=== PATIENT | male | born 1945 | race Two or more races ===

== ENCOUNTER → 2023-03-23 | Outpatient (CLI) | payer OTHER ==
[2023-03-23 09:39] LABS: Basophils # (auto) 0 10 ^3/uL (0-0.2); Eosinophils # (auto) 0.2 10 ^3/uL (0-0.8); Eosinophils % (auto) 4.7 % (0.0-7.0); Hematocrit 40.4 % (41.0-53.0); Hemoglobin 13.9 g/dL (13.5-17.5); Lymphocytes # (auto) 1.4 10 ^3/uL (0.4-5.4); Lymphocytes % (auto) 37.3 % (10.0-50.0); Mean Corpuscular Hemoglobin 30.3 pg (28.0-32.0); Mean Corpuscular Hgb Conc. 34.3 g/dL (32.0-36.0); Mean Corpuscular Volume 88.4 fL (80.0-100.0); Monocytes # (auto) 0.3 10 ^3/uL (0-1.3); Neutrophils # (auto) 1.8 10 ^3/uL (1.6-8.6); Nucleated Red Blood Cells % 0.5 %; Red Blood Cells 4.57 10^6/uL (4.5-5.90); Red Cell Distribution Width 13.4 % (11.8-14.3); White Blood Cell 3.7 10^3/uL (4.4-10.8)
[2023-03-23 10:26] LABS: Potassium 4.4 mmol/L (3.5-5.1)
[2023-03-23 10:38] LABS: Albumin 4.2 g/dL (3.4-5.0); BUN/Creatinine Ratio 12.7 (10.0-20.0); Bilirubin, Total 0.6 mg/dL (0.2-1.0); Calcium 9.1 mg/dL (8.5-10.1); Total Protein 7.7 g/dL (6.4-8.2)
== END | disposition home or self-care (01) ==
LOC: LAB 09:22
PROVIDERS: ATTEND Family Medicine
DX: Z12.5 Encounter for screening for malignant neoplasm of prostate (principal); Z12.11 Encounter for screening for malignant neoplasm of colon; N40.1 Benign prostatic hyperplasia with lower urinary tract symptoms; E78.2 Mixed hyperlipidemia; E55.9 Vitamin D deficiency, unspecified
CPT/HCPCS: 36415; 80053; 80061; 83036; 84153; 84443; 85025

== ENCOUNTER → 2023-07-05 | Outpatient (CLI) | payer OTHER ==
[2023-07-05 10:10] LABS: Albumin 4.5 g/dL (3.2-4.8)
[2023-07-05 10:11] LABS: Bilirubin, Direct 0.3 mg/dL (<0.3); Bilirubin, Total 0.9 mg/dL (0.2-1.0); Total Protein 7.1 g/dL (5.7-8.2)
== END | disposition home or self-care (01) ==
LOC: LAB 09:22
PROVIDERS: ATTEND Family Medicine
DX: N18.30 Chronic kidney disease, stage 3 unspecified (principal); E87.8 Other disorders of electrolyte and fluid balance, not elsewhere classified; E78.2 Mixed hyperlipidemia
CPT/HCPCS: 36415; 80061; 80076; 85014

== ENCOUNTER → 2023-08-02 | Outpatient (CLI) | payer OTHER ==
[2023-08-02 12:27] LABS: Basophils # (auto) 0 10 ^3/uL (0-0.2); Basophils % (auto) 1.1 % (0.0-2.0); Eosinophils # (auto) 0.1 10 ^3/uL (0-0.8); Eosinophils % (auto) 3.9 % (0.0-7.0); Hematocrit 39.2 % (41.0-53.0); Hemoglobin 13.3 g/dL (13.5-17.5); Lymphocytes # (auto) 1.6 10 ^3/uL (0.4-5.4); Lymphocytes % (auto) 42.3 % (10.0-50.0); Mean Corpuscular Hemoglobin 29.8 pg (28.0-32.0); Mean Corpuscular Hgb Conc. 33.8 g/dL (32.0-36.0); Mean Corpuscular Volume 88.3 fL (80.0-100.0); Monocytes # (auto) 0.3 10 ^3/uL (0-1.3); Neutrophils # (auto) 1.7 10 ^3/uL (1.6-8.6); Neutrophils % (auto) 43.7 % (37.0-80.0); Nucleated Red Blood Cells % 0.2 %; Red Blood Cells 4.44 10^6/uL (4.5-5.90); Red Cell Distribution Width 13.9 % (11.8-14.3); White Blood Cell 3.8 10^3/uL (4.4-10.8)
[2023-08-02 13:25] LABS: Alanine Aminotransferase 31 U/L (7-40); Albumin 4.6 g/dL (3.2-4.8); Alkaline Phosphatase 39 U/L (46-116); Anion Gap 7 (5-15); Aspartate Aminotransferase 31 U/L (13-40); Calcium 9.8 mg/dL (8.5-10.1); Carbon Dioxide 26 mmol/L (20-30); Chloride 108 mmol/L (98-107); Cholesterol 152 mg/dL (< 200); Glucose 87 mg/dL (74-106); Potassium 4.1 mmol/L (3.5-5.1); Sodium 141 mmol/L (136-145)
[2023-08-02 13:26] LABS: % Iron Saturation 41.6 % (20-55); BUN/Creatinine Ratio 9.6 (10.0-20.0); Blood Urea Nitrogen 12 mg/dL (9-23); Folate (Folic Acid) 10.42 ng/mL (>5.38); Triglycerides 223 mg/dL (< 150)
[2023-08-02 13:27] LABS: LDL Cholesterol 82 mg/dL (< 100)
[2023-08-02 13:28] LABS: Bilirubin, Total 0.8 mg/dL (0.2-1.0); HDL Cholesterol 29 mg/dL (40-59)
[2023-08-02 13:29] LABS: Total Protein 7.6 g/dL (5.7-8.2)
== END | disposition home or self-care (01) ==
LOC: LAB 12:11
PROVIDERS: ATTEND Family Medicine
DX: D64.9 Anemia, unspecified (principal); E78.2 Mixed hyperlipidemia; E78.5 Hyperlipidemia, unspecified
CPT/HCPCS: 36415; 80053; 80061; 82270; 82607; 82746; 83540; 83550; 85025

== ENCOUNTER → 2023-09-26 | Outpatient (CLI) | payer OTHER ==
[2023-09-26 13:32] LABS: Alanine Aminotransferase 36 U/L (7-40); Alkaline Phosphatase 45 U/L (46-116); Anion Gap 9 (5-15); BUN/Creatinine Ratio 9.5 (10.0-20.0); Blood Urea Nitrogen 12 mg/dL (9-23); Calcium 10.4 mg/dL (8.5-10.1); Carbon Dioxide 26 mmol/L (20-30); Chloride 107 mmol/L (98-107); Glucose 94 mg/dL (74-106); LDL Cholesterol 85 mg/dL (< 100); Potassium 4.2 mmol/L (3.5-5.1); Sodium 142 mmol/L (136-145); Triglycerides 176 mg/dL (< 150)
[2023-09-26 13:33] LABS: Albumin 4.8 g/dL (3.2-4.8); Aspartate Aminotransferase 36 U/L (13-40); Cholesterol 138 mg/dL (< 200); HDL Cholesterol 31 mg/dL (40-59)
[2023-09-26 13:34] LABS: Total Protein 7.9 g/dL (5.7-8.2)
== END | disposition home or self-care (01) ==
LOC: LAB 12:15
PROVIDERS: ATTEND Family Medicine
DX: Z12.11 Encounter for screening for malignant neoplasm of colon (principal); E55.9 Vitamin D deficiency, unspecified; E78.2 Mixed hyperlipidemia; N18.30 Chronic kidney disease, stage 3 unspecified; E78.5 Hyperlipidemia, unspecified
CPT/HCPCS: 36415; 80053; 80061; 83036; 84153; 84443

== ENCOUNTER → 2023-12-27 | Outpatient (CLI) | payer OTHER ==
[2023-12-27 13:03] LABS: Alanine Aminotransferase 32 U/L (7-40); Albumin 4.5 g/dL (3.2-4.8); Alkaline Phosphatase 41 U/L (46-116); Anion Gap 5 (5-15); Aspartate Aminotransferase 47 U/L (13-40); BUN/Creatinine Ratio 6.9 (10.0-20.0); Blood Urea Nitrogen 8 mg/dL (9-23); Calcium 9.9 mg/dL (8.5-10.1); Carbon Dioxide 30 mmol/L (20-30); Chloride 108 mmol/L (98-107); Glucose 90 mg/dL (74-106); LDL Cholesterol 79 mg/dL (< 100); Potassium 4.1 mmol/L (3.5-5.1); Sodium 143 mmol/L (136-145); Triglycerides 176 mg/dL (< 150)
[2023-12-27 13:04] LABS: Bilirubin, Total 0.7 mg/dL (0.2-1.0); Cholesterol 134 mg/dL (< 200); HDL Cholesterol 34 mg/dL (40-59); Total Protein 7.2 g/dL (5.7-8.2)
== END | disposition home or self-care (01) ==
LOC: LAB 12:20
PROVIDERS: ATTEND Family Medicine
DX: N18.31 Chronic kidney disease, stage 3a (principal); E78.5 Hyperlipidemia, unspecified; E78.2 Mixed hyperlipidemia
CPT/HCPCS: 36415; 80053; 80061

== ENCOUNTER → 2024-03-26 | Outpatient (CLI) | payer OTHER ==
[2024-03-26 09:19] LABS: Urine Bacteria None Seen /hpf (None Seen)
[2024-03-26 09:40] LABS: Basophils # (auto) 0.1 10 ^3/uL (0-0.2); Basophils % (auto) 1.3 % (0.0-2.0); Eosinophils # (auto) 0.2 10 ^3/uL (0-0.8); Hematocrit 42.8 % (41.0-53.0); Hemoglobin 14.5 g/dL (13.5-17.5); Lymphocytes # (auto) 1.7 10 ^3/uL (0.4-5.4); Mean Corpuscular Hgb Conc. 33.8 g/dL (32.0-36.0); Mean Corpuscular Volume 88.6 fL (80.0-100.0); Monocytes # (auto) 0.3 10 ^3/uL (0-1.3); Monocytes % (auto) 8.1 % (0.0-12.0); Neutrophils # (auto) 1.8 10 ^3/uL (1.6-8.6); Neutrophils % (auto) 44.6 % (37.0-80.0); Nucleated Red Blood Cells % 0.1 %; Red Blood Cells 4.83 10^6/uL (4.5-5.90); White Blood Cell 4.1 10^3/uL (4.4-10.8)
[2024-03-26 09:59] LABS: Alanine Aminotransferase 36 U/L (7-40); Alkaline Phosphatase 40 U/L (46-116); Anion Gap 6 (5-15); BUN/Creatinine Ratio 7.4 (10.0-20.0); Blood Urea Nitrogen 9 mg/dL (9-23); Calcium 10.1 mg/dL (8.5-10.1); Carbon Dioxide 27 mmol/L (20-30); Chloride 109 mmol/L (98-107); Glucose 101 mg/dL (74-106); Potassium 3.7 mmol/L (3.5-5.1); Sodium 142 mmol/L (136-145); Triglycerides 152 mg/dL (< 150)
[2024-03-26 10:00] LABS: Albumin 4.7 g/dL (3.2-4.8); LDL Cholesterol 90 mg/dL (< 100)
[2024-03-26 10:01] LABS: Aspartate Aminotransferase 37 U/L (13-40); Bilirubin, Total 0.8 mg/dL (0.2-1.0); Cholesterol 141 mg/dL (< 200); HDL Cholesterol 31 mg/dL (40-59); Total Protein 7.6 g/dL (5.7-8.2)
[2024-03-26 11:16] LABS: Urine Blood Negative /uL (Negative); Urine Clarity Clear (Clear); Urine Color Light-Yellow (Yellow); Urine Protein, UAD Negative (Negative); Urine Specific Gravity 1.013 (1.001-1.035); Urine Urobilinogen Normal (Negative); Urine WBC 1 /hpf (0 - 3)
[2024-03-26 11:30] LABS: Uric Acid 4.6 mg/dL (3.7-9.2)
== END | disposition home or self-care (01) ==
LOC: LAB 09:09
PROVIDERS: ATTEND Family Medicine
DX: Z12.11 Encounter for screening for malignant neoplasm of colon (principal); Z12.5 Encounter for screening for malignant neoplasm of prostate; E55.9 Vitamin D deficiency, unspecified; N18.2 Chronic kidney disease, stage 2 (mild); E78.5 Hyperlipidemia, unspecified
CPT/HCPCS: 36415; 80053; 80061; 80329; 81001; 82043; 82270; 83036; 84443; 84550; 85025

== ENCOUNTER → 2024-07-20 | Outpatient (CLI) | payer OTHER ==
[2024-07-20 10:05] LABS: Alanine Aminotransferase 23 U/L (7-40); Albumin 4.5 g/dL (3.2-4.8); Alkaline Phosphatase 39 U/L (46-116); Anion Gap 8 (5-15); Aspartate Aminotransferase 24 U/L (13-40); BUN/Creatinine Ratio 13.1 (10.0-20.0); Bilirubin, Total 0.8 mg/dL (0.2-1.0); Blood Urea Nitrogen 17 mg/dL (9-23); Calcium 10.1 mg/dL (8.7-10.4); Carbon Dioxide 26 mmol/L (20-31); Chloride 110 mmol/L (98-107); Cholesterol 125 mg/dL (< 200); Glucose 99 mg/dL (74-106); HDL Cholesterol 29 mg/dL (40-59); LDL Cholesterol 65 mg/dL (< 100); Potassium 3.7 mmol/L (3.5-5.1); Sodium 144 mmol/L (136-145); Triglycerides 202 mg/dL (< 150)
[2024-07-20 10:06] LABS: Total Protein 7.2 g/dL (5.7-8.2)
== END | disposition home or self-care (01) ==
LOC: LAB 09:09
PROVIDERS: ATTEND Nurse Practitioner Family
DX: E78.2 Mixed hyperlipidemia (principal); E55.9 Vitamin D deficiency, unspecified; N18.2 Chronic kidney disease, stage 2 (mild)
CPT/HCPCS: 36415; 80053; 80061

== ENCOUNTER 2024-10-16 15:13 | Emergency (ER) | payer OTHER ==
[~2024-10-16] VITALS: Ht 165.1 cm; Wt 76.1 kg
--- NOTE | 2024-10-16 15:30 | ED.PDOC ---
History of Present Illness HPI Comments 79 y/o M presents with c/o chest pain, shortness of breath, and cough, today. Patient is a [place] Citizen speaker and required translation. He endorses on unprovoked onset of symptoms, intermittently, for the past 3x weeks and characterized his pain as pressure-like in quality and it being diffused across his entire chest wall area. Patient only reports Hx of HLD. He denies any palpitations, dizziness, nausea, vomiting, fever, chills, or other associated symptoms or modifiers at this time. Upon arrival to ED triage, patient was found hypertensive, with a blood pressure of 145/77. Chief Complaint: Chest Pain Time Seen by MD: 15:20 Primary Care Provider: JILL Franco Notes: Nurses Notes, Medications, Allergies Allergies: Coded Allergies: NO KNOWN ALLERGIES (Unverified , 10/16/24) Information Source: Patient Mode of Arrival: Ambulatory Severity: Moderate Timing: Hours Duration: Since onset Past Medical History PAST MEDICAL HISTORY: High Lipids Surgical History: Denies all surgeries Family History Family History: Unknown Social History Smoker: Non-Smoker Alcohol: Denies ETOH Use Drugs: Denies Drug Use Lives In: Home Respiratory: reports: cough, shortness of breath Cardiovascular: reports: chest pain All Other Systems: Reviewed and Negative (negative unless otherwise stated above or in HPI) Physical Exam General Appearance: Moderate Distress HEENT: Normal ENT Inspection, Pharynx Normal, TMs Normal Neck: Full Range of Motion, Non-Tender, Normal, Normal Inspection Respiratory: Chest Non-Tender, Lungs Clear, No Accessory Muscle Use, No Respiratory Distress, Normal Breath Sounds Cardiovascular: No Edema, No JVD, No Murmur, No Gallop, Normal Peripheral Pulses, Regular Rate/Rhythm Breast Exam: Deferred Gastrointestinal: No Organomegaly, Non Tender, No Pulsatile Mass, Normal Bowel Sounds, Soft Genitalia: Deferred Pelvic: Deferred Rectal: Deferred Extremities: No calf tenderness, Normal capillary refill, Normal inspection, Normal range of motion, Non-tender, No pedal edema Musculoskeletal : Apperance: Normal Neurologic: Alert, 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 Was a procedure done?: No EKG EKG : Pulse Rate (adult): 76 [place]: LAD Cardiac Rhythm: NSR Block: None Hypertrophy: None ST: Normal Differential Dx Considerations may include: NH, PE, PNA, ACS, costochondritis, pericarditis, anxiety, angina, viral syndrome, musculoskeletal pain X-Ray, Labs, Meds, VS Vital Signs Date Time Temp Pulse Resp B/P (MAP) Pulse Ox O2 Delivery O2 Flow Rate FiO2 10/16/24 16:01 76 10/16/24 15:18 76 10/16/24 15:16 98.1 76 20 145/77 (99) 100 Lab Test 10/16/24 15:20 Range/Units White Blood Count 3.8 L 4.4-10.8 10^3/uL Red Blood Count 4.53 4.5-5.90 10^6/uL Hemoglobin 13.5 13.5-17.5 g/dL Hematocrit 39.5 L 41.0-53.0 % Mean Corpuscular Volume 87.2 80.0-100.0 fL Mean Corpuscular Hemoglobin 29.7 28.0-32.0 pg Mean Corpuscular Hemoglobin Concent 34.1 32.0-36.0 g/dL Red Cell Distribution Width 13.6 11.8-14.3 % Platelet Count 179 140-450 10^3/uL Mean Platelet Volume 8.0 6.9-10.8 fL Neutrophils (%) (Auto) 46.5 37.0-80.0 % Lymphocytes (%) (Auto) 38.6 10.0-50.0 % Monocytes (%) (Auto) 9.0 0.0-12.0 % Eosinophils (%) (Auto) 5.2 0.0-7.0 % Basophils (%) (Auto) 0.7 0.0-2.0 % Neutrophils # (Auto) 1.7 1.6-8.6 10 ^3/uL Lymphocytes # (Auto) 1.5 0.4-5.4 10 ^3/uL Monocytes # (Auto) 0.3 0-1.3 10 ^3/uL Eosinophils # (Auto) 0.2 0-0.8 10 ^3/uL Basophils # (Auto) 0 0-0.2 10 ^3/uL Nucleated Red Blood Cells 0.1 % Prothrombin Time 11.7 9.3-11.8 sec Prothrombin Time INR 1.11 0.9-1.15 Activated Partial Thromboplast Time 30.5 24.5-34.5 SEC Sodium Level 144 136-145 mmol/L Potassium Level 3.9 3.5-5.1 mmol/L Chloride Level 109 H 98-107 mmol/L Carbon Dioxide Level 27 20-31 mmol/L Anion Gap 8 5-15 Blood Urea Nitrogen Pending Creatinine 1.22 0.700-1.30 mg/dL Glomerular Filtration Rate Calc 61 >90 mL/min BUN/Creatinine Ratio Pending Serum Glucose 86 74-106 mg/dL Calcium Level 10.7 H 8.7-10.4 mg/dL Total Bilirubin 0.7 0.2-1.0 mg/dL Aspartate Amino Transferase (AST) 32 13-40 U/L Alanine Aminotransferase (ALT) 29 7-40 U/L Alkaline Phosphatase 51 46-116 U/L Troponin I High Sensitivity 4 </=54 ng/L Total Protein 7.5 5.7-8.2 g/dL Albumin 4.7 3.2-4.8 g/dL [place] [address] Ph: [phone] DIAGNOSTIC IMAGING Diagnostic Imaging Report : [id number] Signed PATIENT: RADHA CRUZ ACCT: [id number] UNIT: [id number] : 1945 LOC: ER ROOM / BED: / AGE / SEX: 79 / M ADM STATUS: REG ER SERVICE ORDERING PHYSICIAN: YOLANDE OBREGON MD PROCEDURE(s): CXRP - CHEST PORTABLE REASON: chest pain ORDER NUMBER(s): [id number], ACCESSION NUMBER(s): [id number] CHEST RADIOGRAPH Indication: chest pain Technique: Single frontal view of the chest was obtained COMPARISON: None FINDINGS: Lines and Tubes: None Lungs: Clear Pleura: No effusion. No pneumothorax. Cardiomediastinal contours: Unremarkable Bones: Unremarkable IMPRESSION: 1. No acute disease. ATED BY: RANDY GARCIA MD DICTATED DATE/TIME: 10/16/24 1540 SIGNED BY: RANDY GARCIA MD SIGNED DATE/TIME: 10/16/24 1540 CC: Patient alert. Complaining of chest discomfort. Vitals stable. Answering all questions. Chest x-ray reviewed does not show any acute changes. Was given aspirin. He is not in distress. No leg swelling. No discoloration. Good skin color. EKG reviewed does not show any acute changes. Explained to the patient. Was told to follow up with his primary care physician. Was told to come back if there is any problem. Time of 1ST Reevaluation: 15:50 Reevaluation 1ST: Unchanged Patient Education/Counseling: Diagnosis, Treatment Family Education/Counseling: No Family Present Departure 1 Departure Time of Disposition: 16:25 Impression: Primary Impression: Musculoskeletal chest pain Disposition: 01 HOME / SELF CARE / HOMELESS Condition: Good Discharged With: Self Critical Care Note Critical Care Time?: No Stability Stability form required: No Heart Score Heart Score: Heart Score Response (Comments) Value History Moderate Suspicious 1 EKG Normal 0 Age >65 2 Risk Factors 1 or 2 risk factors 1 Troponin Normal limit 0 Total 4 I personally scribed for YOLANDE OBREGON MD ([email or web address]) on 10/16/24 at 15:30. Electronically submitted by Haroon Ji ([email or web address]). I personally scribed for YOLANDE OBREGON MD ([email or web address]) on 10/16/24 at 15:50. Electronically submitted by Haroon Ji ([email or web address]). I personally scribed for YOLANDE OBREGON MD ([email or web address]) on 10/16/24 at 16:01. Electronically submitted by Haroon Ji ([email or web address]). YOLANDE OBREGON MD Oct 16, 2024 15:30
[2024-10-16 15:36] LABS: Basophils # (auto) 0 10 ^3/uL (0-0.2); Basophils % (auto) 0.7 % (0.0-2.0); Eosinophils # (auto) 0.2 10 ^3/uL (0-0.8); Eosinophils % (auto) 5.2 % (0.0-7.0); Hematocrit 39.5 % (41.0-53.0); Hemoglobin 13.5 g/dL (13.5-17.5); Lymphocytes # (auto) 1.5 10 ^3/uL (0.4-5.4); Lymphocytes % (auto) 38.6 % (10.0-50.0); Mean Corpuscular Hemoglobin 29.7 pg (28.0-32.0); Mean Corpuscular Hgb Conc. 34.1 g/dL (32.0-36.0); Mean Corpuscular Volume 87.2 fL (80.0-100.0); Monocytes # (auto) 0.3 10 ^3/uL (0-1.3); Neutrophils # (auto) 1.7 10 ^3/uL (1.6-8.6); Neutrophils % (auto) 46.5 % (37.0-80.0); Nucleated Red Blood Cells % 0.1 %; Platelet Count (auto) 179 10^3/uL (140-450); Red Blood Cells 4.53 10^6/uL (4.5-5.90); Red Cell Distribution Width 13.6 % (11.8-14.3); White Blood Cell 3.8 10^3/uL (4.4-10.8)
--- NOTE | 2024-10-16 15:43 | DVH ---
CHEST RADIOGRAPH Indication: chest pain Technique: Single frontal view of the chest was obtained COMPARISON: None FINDINGS: Lines and Tubes: None Lungs: Clear Pleura: No effusion. No pneumothorax. Cardiomediastinal contours: Unremarkable Bones: Unremarkable IMPRESSION: 1. No acute disease.
[2024-10-16 15:54] LABS: Alanine Aminotransferase 29 U/L (7-40); Albumin 4.7 g/dL (3.2-4.8); Alkaline Phosphatase 51 U/L (46-116); Anion Gap 8 (5-15); Aspartate Aminotransferase 32 U/L (13-40); Bilirubin, Total 0.7 mg/dL (0.2-1.0); Carbon Dioxide 27 mmol/L (20-31); Glucose 86 mg/dL (74-106); Potassium 3.9 mmol/L (3.5-5.1); Sodium 144 mmol/L (136-145)
[2024-10-16 15:55] LABS: Total Protein 7.5 g/dL (5.7-8.2)
[2024-10-16 16:02] LABS: Calcium 10.7 mg/dL (8.7-10.4); Chloride 109 mmol/L (98-107)
[2024-10-16 16:11] LABS: INR 1.11 (0.9-1.15); Partial Thromboplastin Time 30.5 SEC (24.5-34.5); Prothrombin Time 11.7 sec (9.3-11.8)
[2024-10-16 16:21] LABS: BUN/Creatinine Ratio 10.7 (10.0-20.0); Blood Urea Nitrogen 13 mg/dL (9-23)
--- NOTE | 2024-10-16 16:51 | ECG ---
[facility] Test Date: 2024-10-16 Test Time: 16:50:09 Pat Name: RADHA RCUZ Department: ER Room: Gender: M Industrial Tractor Driver: BRISEIDA : 1945 Requested By: YOLANDE OBREGON Order Number: [id number] Reading MD: Vikas Banegas Measurements Intervals [place] Rate: 73 P: 47 CA: 151 QRS: -19 QRSD: 107 T: 6 QT: 389 QTc: 429 Interpretive Statements Sinus rhythm Borderline left axis deviation Electronically Signed On 10-16-2024 17:56:22 PST by Vikas Banegas Please click the below link to view image of tracing.
[2024-10-16] MEDS: ASPirin 325 MG TAB PO ONE (18:50)
[2024-10-16 20:35] VITALS: BP 145/77; PULSE 76; RESP 20; TEMP 98.1; O2SAT 100
== END 2024-10-16 20:48 | disposition home or self-care (01) ==
LOC: ER 15:13
DX: R07.89 Other chest pain (principal); E78.5 Hyperlipidemia, unspecified; I10 Essential (primary) hypertension
CPT/HCPCS: 36415; 71045; 80053; 84484; 85025; 85610; 85730; 93005

== ENCOUNTER → 2024-10-25 | Outpatient (CLI) | payer OTHER ==
[2024-10-25 09:06] LABS: Urine Bacteria None Seen /hpf (None Seen)
[2024-10-25 09:37] LABS: Urine Blood Negative /uL (Negative); Urine Clarity Clear (Clear); Urine Color Light-Yellow (Yellow); Urine Protein, UAD Negative (Negative); Urine Specific Gravity 1.013 (1.001-1.035); Urine Squamous Epithelial Cell None Seen /hpf (<5); Urine Urobilinogen Normal (Negative); Urine WBC 1 /hpf (0 - 3); Urine pH 5.5 (5.0-9.0)
[2024-10-25 09:53] LABS: Alanine Aminotransferase 28 U/L (7-40); Albumin 4.6 g/dL (3.2-4.8); Anion Gap 6 (5-15); Aspartate Aminotransferase 32 U/L (13-40); BUN/Creatinine Ratio 14.2 (10.0-20.0); Blood Urea Nitrogen 18 mg/dL (9-23); Carbon Dioxide 26 mmol/L (20-31); LDL Cholesterol 90 mg/dL (< 100); Sodium 142 mmol/L (136-145)
[2024-10-25 09:54] LABS: Bilirubin, Total 0.6 mg/dL (0.2-1.0); Cholesterol 149 mg/dL (< 200); Total Protein 7.7 g/dL (5.7-8.2)
[2024-10-25 10:00] LABS: Alkaline Phosphatase 45 U/L (46-116); Chloride 110 mmol/L (98-107); Glucose 108 mg/dL (74-106)
[2024-10-25 10:01] LABS: Calcium 10.5 mg/dL (8.7-10.4); HDL Cholesterol 32 mg/dL (40-59); Triglycerides 223 mg/dL (< 150)
== END | disposition home or self-care (01) ==
LOC: LAB 08:55
PROVIDERS: ATTEND Family Medicine
DX: Z12.5 Encounter for screening for malignant neoplasm of prostate (principal); N18.2 Chronic kidney disease, stage 2 (mild); E78.5 Hyperlipidemia, unspecified; E55.9 Vitamin D deficiency, unspecified
CPT/HCPCS: 36415; 80053; 80061; 80329; 81001; 82043; 82270; 83036; 84443

== ENCOUNTER 2024-11-14 07:28 | Day surgery (SDC) | payer OTHER ==
[2024-11-08 11:08] LABS: Basophils # (auto) 0 10 ^3/uL (0-0.2); Basophils % (auto) 0.7 % (0.0-2.0); Eosinophils # (auto) 0.2 10 ^3/uL (0-0.8); Eosinophils % (auto) 5.6 % (0.0-7.0); Hematocrit 41.7 % (41.0-53.0); Hemoglobin 14.1 g/dL (13.5-17.5); Lymphocytes # (auto) 1.6 10 ^3/uL (0.4-5.4); Lymphocytes % (auto) 37.3 % (10.0-50.0); Mean Corpuscular Hemoglobin 29.9 pg (28.0-32.0); Mean Corpuscular Hgb Conc. 33.8 g/dL (32.0-36.0); Mean Corpuscular Volume 88.7 fL (80.0-100.0); Monocytes # (auto) 0.5 10 ^3/uL (0-1.3); Monocytes % (auto) 10.5 % (0.0-12.0); Neutrophils % (auto) 45.9 % (37.0-80.0); Nucleated Red Blood Cells % 0.2 %; Platelet Count (auto) 159 10^3/uL (140-450); Red Blood Cells 4.71 10^6/uL (4.5-5.90); Red Cell Distribution Width 14.4 % (11.8-14.3); White Blood Cell 4.4 10^3/uL (4.4-10.8)
[2024-11-08 11:23] LABS: INR 1.08 (0.9-1.15); Partial Thromboplastin Time 30.7 SEC (24.5-34.5); Prothrombin Time 11.4 sec (9.3-11.8)
[2024-11-08 11:39] LABS: Alanine Aminotransferase 28 U/L (7-40); Anion Gap 6 (5-15); Aspartate Aminotransferase 33 U/L (13-40); BUN/Creatinine Ratio 16.3 (10.0-20.0); Blood Urea Nitrogen 21 mg/dL (9-23); Carbon Dioxide 27 mmol/L (20-31); Glucose 94 mg/dL (74-106); Sodium 141 mmol/L (136-145)
[2024-11-08 11:41] LABS: Bilirubin, Total 0.6 mg/dL (0.2-1.0); Total Protein 7.8 g/dL (5.7-8.2)
[2024-11-08 12:07] LABS: Alkaline Phosphatase 43 U/L (46-116); Calcium 10.6 mg/dL (8.7-10.4); Chloride 108 mmol/L (98-107)
[~2024-11-14] VITALS: Ht 170.2 cm; Wt 72.6 kg
[~2024-11-14 07:28] MED LIST: ASPI1TAB20 PO; CHOL500046 PO; GEMF-66 PO; GINK60TA3 PO; GLUC1CAP12 PO; KRIL1CAP14 PO; ROSU10TA16 PO; TADA5TAB11 PO
[2024-11-14] MEDS ORDERED: SODIUM CHLORIDE LOCK 10 ML ONE (08:29)
[2024-11-14] MEDS ORDERED: diphenhdrAMINE HCL 50 MG/1 ML VL ONE (08:30)
[2024-11-14] MEDS ORDERED: FLUMAZENIL 0.1 MG/ML INJ 10ML MDV IV ONE (08:32)
[2024-11-14] MEDS ORDERED: NALOXONE HCL 0.4 MG/ML VIAL ONE (08:32)
[2024-11-14 08:50] VITALS: PULSE 65; RESP 16; O2SAT 99
[2024-11-14] MEDS: MIDAZOLAM HCL 5 MG/ML-1ML VIAL ONE (08:51)
[2024-11-14] MEDS: fentaNYL CITRATE 100 MCG/2 ML VL ONE (08:51)
[2024-11-14 09:20] VITALS: TEMP 97.9; O2SAT 94
--- NOTE | 2024-11-14 09:41 | DVHOP2 ---
Operative Report DATE OF PROCEDURE: 11/14/24 INDICATIONS FOR THE PROCEDURE: Rectal bleeding PROCEDURE PERFORMED: Colonoscopy and polypectomy by biopsy POSTOPERATIVE DIAGNOSIS: Small descending colon polyp removed by biopsy forceps Small cecal polyp removed by biopsy forceps Diverticulosis sigmoid and descending colon Internal hemorrhoids No active bleeding seen now INFORMED CONSENT: The risks and benefits and alternatives were explained to the patient and informed consent was obtained. PROCEDURE IN DETAIL: The patient was kept NPO after midnight. Conscious sedation was given with Versed 3 mg and fentanyl 50 mcg titrated slowly to get him sedated Olympus colonoscope was passed through the rectum all the way up to cecum. Cecum, ascending colon, hepatic flexure, transverse colon, splenic flexure, descending colon, and sigmoid colon were all visualized and the findings were as follows: Findings: In the cecum there was one small polyp which was about 5 mm in diameter close to the appendiceal orifice this was removed with the help of the biopsy forceps completely In the distal descending colon there was a polyp which was about 4 mm in diameter removed with the help of the biopsy forceps copy A few diverticula seen in the descending as well as sigmoid colon There were internal hemorrhoids in the rectum without active bleeding No active bleeding seen Patient Tolerated the procedure extremely well post vital stable ENDOSCOPIC IMPRESSION: Small descending colon polyp removed by biopsy forceps Small cecal polyp removed by biopsy forceps Diverticulosis sigmoid and descending colon Internal hemorrhoids No active bleeding seen now SUGGESTIONS: Await the history of the polyps Symptomatic from the diverticulosis and the hemorrhoids If further bleeding may need further evaluations as necessary Because of the polyp seen we will recommend repeat evaluation of the colon in five years unless symptoms or histology warrant earlier intervention Thank you Dr. Florez Copy of the dictation to Dr. Durand and MARISSA Stearns MD Nov 14, 2024 09:41
[2024-11-14 10:00] VITALS: BP 112/64; PULSE 63; RESP 13; O2SAT 96
== END 2024-11-14 10:11 | disposition home or self-care (01) ==
LOC: GI 07:28
PROVIDERS: ATTEND Internal Medicine Gastroenterology
DX: K62.5 Hemorrhage of anus and rectum (principal); D12.0 Benign neoplasm of cecum; K63.5 Polyp of colon; K57.30 Diverticulosis of large intestine without perforation or abscess without bleeding; K64.8 Other hemorrhoids; E11.9 Type 2 diabetes mellitus without complications; F41.9 Anxiety disorder, unspecified; F43.10 Post-traumatic stress disorder, unspecified; F17.210 Nicotine dependence, cigarettes, uncomplicated; Z86.2 Personal history of diseases of the blood and blood-forming organs and certain disorders involving the immune mechanism; Z82.49 Family history of ischemic heart disease and other diseases of the circulatory system; Z80.9 Family history of malignant neoplasm, unspecified
CPT/HCPCS: 36415; 45380; 80053; 85025; 85610; 85730; 88305; J2250; J3010; J7030; 99152; 99153

== ENCOUNTER → 2024-12-12 | Outpatient (CLI) | payer OTHER | END | disposition home or self-care (01) | LOC: LAB 15:11 | PROVIDERS: ATTEND Family Medicine | DX: Z12.11 Encounter for screening for malignant neoplasm of colon (principal) | CPT/HCPCS: 82270 ==

== ENCOUNTER → 2025-03-06 | Outpatient (CLI) | payer OTHER ==
[2025-03-06 09:19] LABS: Alanine Aminotransferase 16 U/L (7-40); Albumin 4.6 g/dL (3.2-4.8); Alkaline Phosphatase 49 U/L (46-116); Anion Gap 9 (5-15); Aspartate Aminotransferase 21 U/L (13-40); BUN/Creatinine Ratio 10.3 (10.0-20.0); Bilirubin, Total 0.7 mg/dL (0.2-1.0); Blood Urea Nitrogen 13 mg/dL (9-23); Calcium 9.5 mg/dL (8.7-10.4); Carbon Dioxide 24 mmol/L (20-31); Glucose 105 mg/dL (74-106); Potassium 3.9 mmol/L (3.5-5.1); Sodium 142 mmol/L (136-145); Total Protein 7.5 g/dL (5.7-8.2)
[2025-03-06 09:22] LABS: Chloride 109 mmol/L (98-107)
[2025-03-06 10:16] LABS: LDL Cholesterol 79 mg/dL (< 100)
[2025-03-06 10:17] LABS: Cholesterol 135 mg/dL (< 200); Triglycerides 176 mg/dL (< 150)
[2025-03-06 10:19] LABS: HDL Cholesterol 26 mg/dL (40-59)
== END | disposition home or self-care (01) ==
LOC: LAB 08:28
PROVIDERS: ATTEND Family Medicine
DX: E78.2 Mixed hyperlipidemia (principal); N18.31 Chronic kidney disease, stage 3a; E55.9 Vitamin D deficiency, unspecified; F02.80 Dementia in other diseases classified elsewhere, unspecified severity, without behavioral disturbance, psychotic disturbance, mood disturbance, and anxiety; Z12.5 Encounter for screening for malignant neoplasm of prostate; Z12.11 Encounter for screening for malignant neoplasm of colon
CPT/HCPCS: 36415; 80053; 80061; 82306; 83036; 84153

== ENCOUNTER 2025-04-30 09:23 | Outpatient (CLI) | payer OTHER ==
[2025-04-30 10:18] LABS: Potassium 3.8 mmol/L (3.5-5.1); Sodium 143 mmol/L (136-145)
[2025-04-30 10:19] LABS: Anion Gap 10 (5-15); Carbon Dioxide 25 mmol/L (20-31)
[2025-04-30 10:24] LABS: BUN/Creatinine Ratio 12.7 (10.0-20.0); Blood Urea Nitrogen 16 mg/dL (9-23)
[2025-04-30 10:26] LABS: Calcium 10.8 mg/dL (8.7-10.4); Chloride 108 mmol/L (98-107); Glucose 143 mg/dL (74-106)
[2025-04-30 10:37] LABS: Microalb/Creat Ratio, Urine 3.00
== END 2025-04-30 17:00 | disposition home or self-care (01) ==
LOC: LAB 09:23
PROVIDERS: ATTEND Family Medicine
DX: E11.9 Type 2 diabetes mellitus without complications (principal)
CPT/HCPCS: 36415; 80048; 82043; 82570

== ENCOUNTER 2025-09-02 08:17 | Outpatient (CLI) | payer OTHER ==
[2025-09-02 09:21] LABS: Potassium 4.0 mmol/L (3.5-5.1); Sodium 145.0 mmol/L (136-145)
[2025-09-02 09:22] LABS: Anion Gap 9.0 (5-15); Calcium 9.6 mg/dL (8.7-10.4); Carbon Dioxide 27.0 mmol/L (20-31)
[2025-09-02 09:24] LABS: Chloride 109.0 mmol/L (98-107)
[2025-09-02 09:27] LABS: BUN/Creatinine Ratio 13.6 (10.0-20.0); Blood Urea Nitrogen 16.0 mg/dL (9-23); Glucose 103.0 mg/dL (74-106)
[2025-09-02 09:29] LABS: Albumin 4.4 g/dL (3.2-4.8); Cholesterol 137.0 mg/dL (< 200)
[2025-09-02 09:30] LABS: HDL Cholesterol 29.0 mg/dL (40-59); Microalb/Creat Ratio, Urine 3.00; Triglycerides 229.0 mg/dL (< 150)
== END 2025-09-02 17:00 | disposition home or self-care (01) ==
LOC: LAB 08:17
PROVIDERS: ATTEND Family Medicine
DX: N18.31 Chronic kidney disease, stage 3a (principal); E78.2 Mixed hyperlipidemia; E83.52 Hypercalcemia; R73.01 Impaired fasting glucose
CPT/HCPCS: 36415; 80061; 80069; 82043; 82306; 82570; 83036; 83970

== ENCOUNTER 2025-10-02 18:27 | Emergency (ER) | payer OTHER ==
[~2025-10-02] VITALS: Ht 167.6 cm; Wt 73.0 kg
--- NOTE | 2025-10-02 18:54 | ED.PDOC ---
History of Present Illness HPI Comments 80-year-old male who is [place]-speaking presents to the ER with the son and with prior medical history of chronic constipation, high lipids and a chief complaint of constipation. Son reports on the patient not having a bowel movement for the past two days in his unable to sit down due from the pain. Son states that the patient reported to him the the stool feels hard. Patient did take arkf-zjb-dghfjbo medications with no relief. Denies any other symptoms at this time. Denies chills, fever, N/V/D, SOB, CP. No other associated symptoms, modifiers, recent injuries or sick contacts present at this time. Chief Complaint: Constipation Time Seen by MD: 18:45 Primary Care Provider: JILL Franco Notes: Nurses Notes, Medications, Allergies Allergies: Coded Allergies: NO KNOWN ALLERGIES (Unverified , 10/16/24) Home Meds Reported Medications Ujafojmlmno-Zhawwntqxja-Ali C- (Glucosamine Chondroitin) 1 Cap Cap, 1 CAP PO DAILY, CAP 11/08/24 Tadalafil (Cialis) 5 Mg Tab, 5 MG PO DAILY, TAB 11/08/24 Ginkgo Biloba Extract (Ginkgo Biloba) 60 Mg Tab, 60 MG PO DAILY, TAB 11/08/24 Krill Oil ([place]-3 500 mg) 1 Cap Cap, 1 CAP PO DAILY, CAP 11/08/24 Cholecalciferol (D3 5000) 5,000 Unit Cap, 5000 UNIT PO DAILY, CAP 11/08/24 Aspirin (Aspir-81) 81 Mg Tab, 81 MG PO DAILY, TAB 11/08/24 Rosuvastatin Calcium (Crestor) 10 Mg Tab, 10 MG PO DAILY, TAB 11/08/24 Gemfibrozil (Gemfibrozil) 600 Mg Tab, 600 MG PO, TAB 11/08/24 Information Source: Patient, Relative (Child) Mode of Arrival: Ambulatory Severity: Moderate Timing: Hours Duration: Since onset, Hours Prehospital treatment: None Past Medical History PAST MEDICAL HISTORY: High Lipids Past Medical History (Other): Chronic constipation Surgical History: Denies all surgeries Family History Family History: Reviewed,noncontributory to illness, Unknown Social History Smoker: Non-Smoker Alcohol: Denies ETOH Use Drugs: Denies Drug Use Lives In: Home Constitutional: denies: chills, diaphoresis, fatigue, fever, malaise, sweats, weakness, others EENTM: denies: blurred vision, double vision, ear bleeding, ear discharge, ear drainage, ear pain, ear ringing, eye pain, eye redness, hearing loss, mouth pain, mouth swelling, nasal discharge, nose bleeding, nose congestion, nose pain, photophobia, tearing, throat pain, throat swelling, voice changes, others Respiratory: denies: cough, hemoptysis, orthopnea, SOB at rest, shortness of breath, SOB with excertion, stridor, wheezing, others Cardiovascular: denies: chest pain, dizzy spells, diaphoresis, Dyspnea on exertion, edema, irregular heart beat, left arm pain, lightheadedness, palpitations, PND, syncope, others Gastrointestinal: reports: constipated; denies: abdomen distended, abdominal pain, blood streaked bowels, diarrhea, dysphagia, difficulty swallowing, hematemesis, melena, nausea, poor appetite, poor fluid intake, rectal bleeding, rectal pain, vomiting, others Genitourinary: denies: burning, dysuria, flank pain, frequency, hematuria, incontinence, penile discharge, penile sore, pain, testicle pain, testicle swelling, urgency, others Neurological: denies: dizziness, fainting, headache, left sided numbness, left sided weakness, numbness, paresthesia, pre-existing deficit, right sided numbnes s, right sided weakness, seizure, speech problems, tingling, tremors, weakness, others Musculoskeletal: denies: back pain, gout, joint pain, joint swelling, muscle pain, muscle stiffness, neck pain, others Integumetry: denies: bruises, change in color, change in hair/nails, dryness, laceration, lesions, lumps, rash, wounds, others Allergic/Immunocompromised: denies: Difficulty Healing, Frequent Infections, Hives, Itching, others Hematologic/Lymphatic: denies: anemia, blood clots, easy bleeding, easy bruising, swollen glands, others Endocrine: denies: excessive hunger, excessive sweating, excessive thirst, excessive urination, flushing, intolerance to cold, intolerance to heat, unexplained weight gain, unexplained weight loss, others Psychiatric: denies: anxiety, bipolar disorder, depression, hopeless, panic disorder, schizophrenia, sleepless, suicidal, others All Other Systems: Reviewed and Negative Physical Exam General Appearance: No Apparent Distress, Normal HEENT: Normal ENT Inspection, Pharynx Normal, TMs Normal Neck: Full Range of Motion, Non-Tender, Normal, Normal Inspection Respiratory: Chest Non-Tender, Lungs Clear, No Accessory Muscle Use, No Respiratory Distress, Normal Breath Sounds Cardiovascular: No Edema, No JVD, No Murmur, No Gallop, Normal Peripheral Pulses, Regular Rate/Rhythm Breast Exam: Deferred Gastrointestinal: No Organomegaly, Non Tender, No Pulsatile Mass, Normal Bowel Sounds, Soft Genitalia: Deferred Pelvic: Deferred Rectal: Deferred Extremities: No calf tenderness, Normal capillary refill, Normal inspection, Normal range of motion, Non-tender, No pedal edema Musculoskeletal : Apperance: Normal Neurologic: Alert, 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 Was a procedure done?: No Differential Dx Considerations may include: Bowel obstruction, constipation, X-Ray, Labs, Meds, VS Vital Signs Date Time Temp Pulse Resp B/P (MAP) Pulse Ox O2 Delivery O2 Flow Rate FiO2 10/02/25 18:29 98.1 83 15 154/98 97 98.1 X-Ray, Labs, Meds, VS Comment CT scan shows moderate constipation Patient will be prescribed lactulose and fleets enema Recommend follow up in 24 hours if no bowel movement. Time of 1ST Reevaluation: 19:15 Reevaluation 1ST: Unchanged Patient Education/Counseling: Diagnosis, Treatment, Prognosis, Need For Follow Up (Follow up in 24 hours if no bowel movement.) Family Education/Counseling: Diagnosis, Treatment, Prognosis SEPSIS Sepsis Screen Date sepsis recognized/suspect: Oct 02, 2025 Time Sepsis recognized/suspect: 1829 Recent Procedure: No On Antibiotic Therapy: No Respiratory Rate >20: No Heart Rate >90: No Temp<36 C (96.8 F) or >38.3 C: No SBP <90 or MAP <65 mmHG: No New Acute Mental Status Change: No Is the patient on CPAP, BIPAP,: No Physician Orders Ct Ab Pel Wo Con-No Oral Or Iv (10/02/25 18:50) Ketorolac Injection (Toradol Injection) (10/02/25 19:45) Vital Signs Date Time Temp Pulse Resp B/P (MAP) Pulse Ox O2 Delivery O2 Flow Rate FiO2 10/02/25 18:29 98.1 83 15 154/98 97 98.1 Departure 1 Departure Time of Disposition: 19:45 Impression: Primary Impression: Constipation Qualified Codes: K59.01 - Slow transit constipation Disposition: 01 HOME / SELF CARE / HOMELESS Condition: Stable e-Prescriptions Naproxen (NAPROSYN TABLET) 500 Mg Tb 1 TAB PO BID, #60 TAB 1 Refill Prov: SPRING ORELLANA 10/02/25 Peg 4262-PPg-Wwi Chloride-Sod (Suflave 178.7 gm) 1 [place] 1 [place] PO DAILY PRN, #1 ML Prov: SPRING ORELLANA 10/02/25 Lactulose (Lactulose) 10 Gm/15 Ml [place] 10 GM PO BID PRN, #200 ML Prov: SPRING ORELLANA 10/02/25 Discharged With: Self Critical Care Note Critical Care Time?: No Stability Stability form required: No Heart Score Heart Score: Heart Score Response (Comments) Value History N/A 0 EKG N/A 0 Age N/A 0 Risk Factors N/A 0 Troponin N/A 0 Total 0 I personally scribed for SPRING ORELLANA ([email or web address]) on 10/02/25 at 18:54. Electronically submitted by Serge Faye ([email or web address]). SPRING ORELLANA Oct 02, 2025 18:54
--- NOTE | 2025-10-02 19:35 | DVH ---
EXAM: CT CT AB PEL WO CON-NO ORAL OR IV INDICATION: abd pain TECHNIQUE: Volumetric multidetector CT images of the abdomen and pelvis were obtained without contrast. All CT scans at this facility use dose modulation, iterative reconstruction, and/or weight based dosing when appropriate to reduce radiation dose to as low as reasonably achievable. COMPARISON: None FINDINGS: [LOWER CHEST]: Calcific granuloma of the right middle lobe. The cardiac size is normal without pericardial effusion. [LIVER]: Normal hepatic size without suspicious focal lesion. [GALLBLADDER AND BILIARY TREE]: Trace cholelithiasis of the gallbladder fundus. [SPLEEN]: Unremarkable. [PANCREAS]: Unremarkable. [ADRENAL GLANDS]: Unremarkable [KIDNEYS]: No hydronephrosis. No nephroureterolithiasis. No suspicious focal lesion. [BLADDER]: Unremarkable for the degree distention. [REPRODUCTIVE ORGANS]: Unremarkable. [BOWEL/MESENTERY]: Stomach is distended. Hayi-mm-zxhzmihw stool distention of the rectum and sigmoid colon. Air-fluid level without distention of the ascending and transverse colon. Normal appendix. No CT evidence of bowel obstruction. [ASCITES]: Absent [LYMPHADENOPATHY]: No pathologically enlarged lymph nodes by CT size criteria [VASCULATURE]: Coronary artery calcifications. No aneurysmal dilatation. [ABDOMINAL WALL]: Unremarkable. [MUSCULOSKELETAL]: No acute fracture or aggressive focal osseous lesion. Multifocal degenerative change of the visualized spine. IMPRESSION: 1. No CT evidence of an acute abdominal/pelvic process. 2. Bqtm-kq-yzjobojd stool distention of the rectum and sigmoid colon. 3. Air-fluid level without distention of the ascending and transverse colon. 4. No CT evidence of bowel obstruction. 5. Correlate for constipation.
[2025-10-02] MEDS ORDERED: LACT10SO3 PO (19:47)
[2025-10-02] MEDS ORDERED: [UNRECOGNIZED DRUG - CODE] PO (19:47)
[2025-10-02] MEDS ORDERED: NAP500T PO (19:47)
[2025-10-02 20:08] VITALS: TEMP 98.3
[2025-10-02] MEDS: KETOROLAC TROMETH 30 MG/ML 1ML VIAL IM ONE (20:11)
[2025-10-02 20:21] VITALS: BP 154/84; PULSE 80; RESP 18; O2SAT 97
== END 2025-10-02 20:24 | disposition home or self-care (01) ==
LOC: ER 18:27
DX: K59.00 Constipation, unspecified (principal); E78.5 Hyperlipidemia, unspecified; Z79.899 Other long term (current) drug therapy
CPT/HCPCS: 74176; 96372; 99285; J1885